=== PATIENT | male | born 1945 | race African-American/Black ===

== ENCOUNTER 2016-08-13 14:03 | Emergency (ER) | payer MEDICARE, MEDICAID ==
[2016-08-13 14:45] VITALS: TEMP 97.7; BMI 21.1
[2016-08-13 15:07] LABS: ALL NEG? NO
[2016-08-13 15:16] LABS: MDMA* NEG (NEGATIVE); METHAMPHETAMINES NEG (NEGATIVE); OXYCODONE NEG (NEGATIVE)
[2016-08-13 15:20] LABS: LEUKOCYTES/URINE NEG (NEGATIVE); NITRITE/URINE NEG (NEGATIVE); URINE OCCULT BLOOD NEG (NEG/TRACE)
--- NOTE | 2016-08-13 15:42 | DIRPT ---
CLINICAL DATA: Cough and congestion for 1 month. EXAM: CHEST 2 VIEW COMPARISON: Chest x-ray 07/03/2016 FINDINGS: The cardiac silhouette, mediastinal and hilar contours are within normal limits and stable. There is mild tortuosity of the thoracic aorta. The pulmonary pam are prominent but this is due to enlarged pulmonary arteries on the recent CT scan. There is a right lower lobe densities suspicious for pneumonia. There is a small stable cavitary lesion in the left lower lobe. Stable advanced emphysematous changes and pulmonary scarring. Biapical pleural thickening, right greater than left. No significant bony findings. IMPRESSION: 1. Right lower lobe infiltrate. 2. Emphysematous changes and pulmonary scarring. 3. Stable cavitary lesion in the left lower lobe. Electronically Signed By: Chris Cancino M.D. On: 08/13/2016 15:39
[2016-08-13] MEDS ORDERED: AZITHROMYCIN 500 MG in D5W 250 ML IV ONE (16:36)
[2016-08-13] MEDS ORDERED: CEFTRIAXONE 1 GM in D5W 100 ML IV ONE (16:36)
[2016-08-13] MEDS ORDERED: Levofloxacin 750 mg/150 ml D5W 750 MG/150 ML RTU IV ONE (16:40)
--- NOTE | 2016-08-13 16:42 | EDPRACDOC ---
- General Information Mode Of Arrival: Ambulance - History of Present Illness Onset: SEVERAL DAYS HPI: PT PRESENTS WITH GENERALIZED WEAKNESS, COUGH AND NOT FEELING WELL FOR THE PAST 4 DAYS. PT IS KNOWN TO HAVE COPD, AND ETOH ABUSE. PT APPEARS WEAK AND ILL UPON EXAM Shortness of Breath: Mild Relevant History: Reports: COPD Cough: Reports: Productive, Brown Ear Symptoms: Reports: None SOB Worsens with: Reports: Exertion, Movement, Coughing, Lying Flat, Position SOB Improves with: Reports: Sitting up, Rest, Position Recently treated infections:: Denies: Otitis media, Pneumonia, URI <Asmita Sterling - Last Filed: 08/13/16 16:39> <Forrest Munoz - Last Filed: 08/13/16 19:14> - General Information Chief Complaint: Generalized Weakness Stated Complaint: ETOH WITHDRAWAL WEAKNESS Time Seen by Provider: 08/13/16 16:37 Home Medications: Home Medications Esomeprazole Mag Trihydrate [Nexium] 40 mg PO DAILY 07/17/12 Alprazolam [Xanax] 1 mg PO BID 04/12/13 Aspirin [Aspirin, Chewable] 81 mg PO DAILY 04/12/13 Fluticasone Propionate [Flonase] 1 spray LANDEN DAILY 04/12/13 Lisinopril [Prinivil] 5 mg PO DAILY 04/12/13 Metoprolol Tartrate [Lopressor] 25 mg PO BID 04/12/13 Tamsulosin HCl [Flomax] 0.4 mg PO DAILY 04/12/13 Ipratropium/Albuterol Sulfate [Combivent Respimat] 1 puff INH BID 03/31/14 Tiotropium [Spiriva Handihaler] 1 puff INH DAILY 03/31/14 Cholecalciferol (Vitamin D3) [Vitamin D3] 2,000 unit PO DAILY 03/03/16 Ferrous Sulfate [Iron] 325 mg PO DAILY 03/03/16 Megestrol Acetate 625 mg PO DAILY 03/03/16 Mirtazapine [Remeron] 15 mg PO HS 03/03/16 Amlodipine Besylate [Norvasc] 5 mg PO DAILY 06/03/16 Azithromycin 250 mg PO DAILY #4 tablet 08/13/16 Cefdinir 300 mg PO BID #14 capsule 08/13/16 Allergies/Adverse Reactions: Allergies Allergy/AdvReac Type Severity Reaction Status Date / Time No Known Allergies Allergy Verified 08/13/16 14:41 - Treatment Prior to ED Arrival Reported Medications/Treatment [facility] Treatment BLS IV No <Asmita Sterling - Last Filed: 08/13/16 16:39> - Treatment Prior to ED Arrival Reported Medications/Treatment [facility] Treatment BLS IV No <Forrest Munoz - Last Filed: 08/13/16 19:14> ED Past Medical History - History Reviewed Yes Nurses notes reviewed and agree except as marked - Patient Medical History Neurological History: Reports: Seizures. Denies: Cerebrovascular Accident, Dementia Cardiac History: Reports: Coronary Artery Disease, Hypertension, Hypercholesterolemia. Denies: Congestive Heart Failure, Heart Attack Respiratory History: Reports: Asthma, COPD, Cough, Emphysema GI/ History: Reports: Gastroesophageal Reflux Musculoskeletal History: Reports: Osteoarthritis Psychological History: Reports: Anxiety, Substance Use Disorder (patient smokes) . Denies: Depression Systemic History: Denies: Cancer, Diabetes - Family Medical History Reports: Hypertension, Diabetes, Stroke. Denies: Cancer, Cardiac Disorders - Social Medical History Smoking Status: Heavy tobacco smoker (5 or more cigarettes/day or daily pipe/ cigar) Social History: Reports: Substance Use Disorder (patient smokes) <Asmita Sterling - Last Filed: 08/13/16 16:39> EDM Review of Systems - Review of Systems ROS Negative Except as Marked: Yes All systems reviewed and were negative except as marked <Asmita Sterling - Last Filed: 08/13/16 16:39> - Physical Exam Constitutional: Alert. negative: Well nourished, Well appearing Oriented to: Time, Person, Place Last recorded Vital Signs: Last Vital Signs Temp 97.7 F 08/13/16 14:41 Pulse 107 08/13/16 14:41 Resp 20 08/13/16 14:41 BP 144/76 08/13/16 14:41 Pulse Ox 91 08/13/16 14:41 Oxygen Pulse Oxygen Saturation 91 O2 Device Room Air Oxygen Flow Rate Fraction of Inspired Oxygen ( FIO2) - HEENT Head: Normal ( normocephalic) Eye Exam: Normal (PERRL, EOMI, Sclera white) Oropharynx: Membranes Dry Tympanic Membrane: Normal Nose: No Symptoms Reported (septum midline) Neck: Normal (FROM, trachea at midline) - Respiratory/Cardiovascular Respiratory: Accessory Muscle Use, Rales, Rhonchi, Tachypnea, Wheezes Cardiovascular: Tachycardia - GI Auscultation: Normal (NABS) Palpation: Normal (Soft,No rebound or guarding, non distended) Tenderness: Non tender Darnell's Sign: Negative Rectal Exam: Deferred - Musculoskeletal Back: Normal (Non-Tender) Extremities: Normal (Normal tone, Pulses 2+ No cyanosis or edema, FROM) - Integumentary Skin: Normal, Warm, Dry Lymphatics: Normal (no adenopathy) - Neurologic Memory Impaired: Normal Motor Function: Normal (Normal tone, Pulses 2+ No cyanosis or edema, FROM) Cranial Nerve: Normal (CN II-X11 intact sensation, strength 5/5) Cerebellar: Normal Mood Description: Normal Perception: Normal <Asmita Sterling - Last Filed: 08/13/16 16:39> - Physical Exam Last recorded Vital Signs: Last Vital Signs Temp 97.7 F 08/13/16 14:41 Pulse 82 08/13/16 16:55 Resp 20 08/13/16 16:55 BP 156/73 08/13/16 16:55 Pulse Ox 93 08/13/16 16:55 Oxygen Pulse Oxygen Saturation 93 O2 Device Room Air Oxygen Flow Rate Fraction of Inspired Oxygen ( FIO2) <Forrest Munoz - Last Filed: 08/13/16 19:14> ED SOB MDM - Differential Diagnosis Differential Diagnosis: Pnuemonia, Respiratory Failure, Respiratory Insufficiency - Results Result Diagrams: 08/13/16 14:56 08/13/16 14:56 Results: Urine Color Yellow 08/13/16 15:02 Urine Clarity Clear 08/13/16 15:02 Urine pH 6.0 (5.0-8.0) 08/13/16 15:02 Ur Specific [place] 1.015 (1.003-1.035) 08/13/16 15:02 Urine Protein 1+ (NEG/TRACE) H 08/13/16 15:02 Urine Glucose (UA) Neg (NEGATIVE) 08/13/16 15:02 Urine Ketones 1+ (NEGATIVE) H 08/13/16 15:02 Urine Occult Blood Neg (NEG/TRACE) 08/13/16 15:02 Urine Nitrite Neg (NEGATIVE) 08/13/16 15:02 Urine Bilirubin Neg (NEGATIVE) 08/13/16 15:02 Urine Urobilinogen <2.0 MG/DL (0-1) 08/13/16 15:02 Ur Leukocyte Esterase Neg (NEGATIVE) 08/13/16 15:02 Urine RBC 2-5 (0-2) H 08/13/16 15:02 Urine WBC 2-5 (0-2) H 08/13/16 15:02 Urine Bacteria Few (NEG/FEW) 08/13/16 15:02 Hyaline Casts 10-20 (0-2) H 08/13/16 15:02 Urine Mucus Mod (NEG/OCC) H 08/13/16 15:02 Urine Opiates Screen Neg (NEGATIVE) 08/13/16 15:02 Ur Oxycodone Screen Neg (NEGATIVE) 08/13/16 15:02 Urine Methadone Screen Neg (NEGATIVE) 08/13/16 15:02 Ur Barbiturates Screen Neg (NEGATIVE) 08/13/16 15:02 Ur Tricyclics Screen Neg (NEGATIVE) 08/13/16 15:02 Ur Phencyclidine Scrn Neg (NEGATIVE) 08/13/16 15:02 Ur Amphetamines Screen Neg (NEGATIVE) 08/13/16 15:02 U Methamphetamines Scrn Neg (NEGATIVE) 08/13/16 15:02 Urine MDMA Screen Neg (NEGATIVE) 08/13/16 15:02 U Benzodiazepines Scrn *positive* (NEGATIVE) H 08/13/16 15:02 Urine Cocaine Screen Neg (NEGATIVE) 08/13/16 15:02 Ur THC Screen *positive* (NEGATIVE) H 08/13/16 15:02 Lab Results 08/13/16 08/13/16 15:02 15:02 Urine Color Yellow Urine Clarity Clear Urine pH 6.0 Ur Specific [place] 1.015 Urine Protein 1+ H Urine Glucose (UA) Neg Urine Ketones 1+ H Urine Occult Blood Neg Urine Nitrite Neg Urine Bilirubin Neg Urine Urobilinogen <2.0 Ur Leukocyte Esterase Neg Urine RBC 2-5 H Urine WBC 2-5 H Urine Bacteria Few Hyaline Casts 10-20 H Urine Mucus Mod H Urine Opiates Screen Neg Ur Oxycodone Screen Neg Urine Methadone Screen Neg Ur Barbiturates Screen Neg Ur Tricyclics Screen Neg Ur Phencyclidine Scrn Neg Ur Amphetamines Screen Neg U Methamphetamines Scrn Neg Urine MDMA Screen Neg U Benzodiazepines Scrn *positive* H Urine Cocaine Screen Neg Ur THC Screen *positive* H - EKG EKG #1 EKG Time: 15:00 -: Yes EKG interpreted by me Rate: bpm: 88 [place]: Normal Rhythm: NSR (WITH SINUS ARRHYTHMIA) Block: None Hypertrophy: LVH ST: Normal <Asmita Sterling W - Last Filed: 08/13/16 16:39> - Results Result Diagrams: 08/13/16 17:00 08/13/16 17:00 Results: WBC 6.9 xk/uL (3.8-10.8) 08/13/16 17:00 RBC 4.48 xM/uL (4.70-6.10) L 08/13/16 17:00 Hgb 12.8 g/dL (14.0-18.0) L 08/13/16 17:00 Hct 38.7 % (42-52) L 08/13/16 17:00 MCV 86 fL (80-94) 08/13/16 17:00 MCH 28.5 pg (27-32) 08/13/16 17:00 MCHC 33.0 g/dl (33-36) 08/13/16 17:00 RDW 15.5 % (11.5-14.5) H 08/13/16 17:00 Plt Count 387 xk/uL (130-400) 08/13/16 17:00 MPV 6.9 fL (7.4-10.4) L 08/13/16 17:00 Neut % (Auto) 61.2 % (45-76) 08/13/16 17:00 Lymph % (Auto) 24.7 % (17-44) 08/13/16 17:00 [place] % (Auto) 12.1 % (3-10) H 08/13/16 17:00 Eos % (Auto) 1.4 % (0-5) 08/13/16 17:00 Baso % (Auto) 0.6 % (0-2) 08/13/16 17:00 Absolute Neuts (auto) 4.21 xk/uL (1.7-8.2) 08/13/16 17:00 Absolute Lymphs (auto) 1.66 xk/uL (0.65-4.75) 08/13/16 17:00 PT 11.0 SEC (9.2-11.2) 08/13/16 17:00 INR 1.1 08/13/16 17:00 APTT 25.1 SEC (22-35) 08/13/16 17:00 Puncture Site Left radial 08/13/16 17:10 pH 7.450 pH UNITS (7.35-7.45) 08/13/16 17:10 pCO2 38.0 mmHg (35-45) 08/13/16 17:10 pO2 72.0 mmHg (80-100) L 08/13/16 17:10 HCO3 26.4 MMOL/L (22-26) H 08/13/16 17:10 Total CO2 27.6 MMOL/L (23-27) H 08/13/16 17:10 Base Excess 2.4 (+/- 2) H 08/13/16 17:10 FiO2 % 21% 08/13/16 17:10 Specimen Drawn By [place] 08/13/16 17:10 Urine Color Yellow 08/13/16 15:02 Urine Clarity Clear 08/13/16 15:02 Urine pH 6.0 (5.0-8.0) 08/13/16 15:02 Ur Specific [place] 1.015 (1.003-1.035) 08/13/16 15:02 Urine Protein 1+ (NEG/TRACE) H 08/13/16 15:02 Urine Glucose (UA) Neg (NEGATIVE) 08/13/16 15:02 Urine Ketones 1+ (NEGATIVE) H 08/13/16 15:02 Urine Occult Blood Neg (NEG/TRACE) 08/13/16 15:02 Urine Nitrite Neg (NEGATIVE) 08/13/16 15:02 Urine Bilirubin Neg (NEGATIVE) 08/13/16 15:02 Urine Urobilinogen <2.0 MG/DL (0-1) 08/13/16 15:02 Ur Leukocyte Esterase Neg (NEGATIVE) 08/13/16 15:02 Urine RBC 2-5 (0-2) H 08/13/16 15:02 Urine WBC 2-5 (0-2) H 08/13/16 15:02 Urine Bacteria Few (NEG/FEW) 08/13/16 15:02 Hyaline Casts 10-20 (0-2) H 08/13/16 15:02 Urine Mucus Mod (NEG/OCC) H 08/13/16 15:02 Urine Opiates Screen Neg (NEGATIVE) 08/13/16 15:02 Ur Oxycodone Screen Neg (NEGATIVE) 08/13/16 15:02 Urine Methadone Screen Neg (NEGATIVE) 08/13/16 15:02 Ur Barbiturates Screen Neg (NEGATIVE) 08/13/16 15:02 Ur Tricyclics Screen Neg (NEGATIVE) 08/13/16 15:02 Ur Phencyclidine Scrn Neg (NEGATIVE) 08/13/16 15:02 Ur Amphetamines Screen Neg (NEGATIVE) 08/13/16 15:02 U Methamphetamines Scrn Neg (NEGATIVE) 08/13/16 15:02 Urine MDMA Screen Neg (NEGATIVE) 08/13/16 15:02 U Benzodiazepines Scrn *positive* (NEGATIVE) H 08/13/16 15:02 Urine Cocaine Screen Neg (NEGATIVE) 08/13/16 15:02 Ur THC Screen *positive* (NEGATIVE) H 08/13/16 15:02 Lab Results 08/13/16 08/13/16 08/13/16 17:10 17:00 17:00 WBC 6.9 RBC 4.48 L Hgb 12.8 L Hct 38.7 L MCV 86 MCH 28.5 MCHC 33.0 RDW 15.5 H Plt Count 387 MPV 6.9 L Neut % (Auto) 61.2 Lymph % (Auto) 24.7 [place] % (Auto) 12.1 H Eos % (Auto) 1.4 Baso % (Auto) 0.6 Absolute Neuts (auto) 4.21 Absolute Lymphs (auto) 1.66 PT 11.0 INR 1.1 APTT 25.1 Puncture Site Left radial pH 7.450 pCO2 38.0 pO2 72.0 L HCO3 26.4 H Total CO2 27.6 H Base Excess 2.4 H FiO2 % 21% Specimen Drawn By [facility]ana Urine Color Urine Clarity Urine pH Ur Specific [place] Urine Protein Urine Glucose (UA) Urine Ketones Urine Occult Blood Urine Nitrite Urine Bilirubin Urine Urobilinogen Ur Leukocyte Esterase Urine RBC Urine WBC Urine Bacteria Hyaline Casts Urine Mucus Urine Opiates Screen Ur Oxycodone Screen Urine Methadone Screen Ur Barbiturates Screen Ur Tricyclics Screen Ur Phencyclidine Scrn Ur Amphetamines Screen U Methamphetamines Scrn Urine MDMA Screen U Benzodiazepines Scrn Urine Cocaine Screen Ur THC Screen 01/11/17 01/11/17 15:02 15:02 WBC RBC Hgb Hct MCV MCH MCHC RDW Plt Count MPV Neut % (Auto) Lymph % (Auto) [place] % (Auto) Eos % (Auto) Baso % (Auto) Absolute Neuts (auto) Absolute Lymphs (auto) PT INR APTT Puncture Site pH pCO2 pO2 HCO3 Total CO2 Base Excess FiO2 % Specimen Drawn By Urine Color Yellow Urine Clarity Clear Urine pH 6.0 Ur Specific [place] 1.015 Urine Protein 1+ H Urine Glucose (UA) Neg Urine Ketones 1+ H Urine Occult Blood Neg Urine Nitrite Neg Urine Bilirubin Neg Urine Urobilinogen <2.0 Ur Leukocyte Esterase Neg Urine RBC 2-5 H Urine WBC 2-5 H Urine Bacteria Few Hyaline Casts 10-20 H Urine Mucus Mod H Urine Opiates Screen Neg Ur Oxycodone Screen Neg Urine Methadone Screen Neg Ur Barbiturates Screen Neg Ur Tricyclics Screen Neg Ur Phencyclidine Scrn Neg Ur Amphetamines Screen Neg U Methamphetamines Scrn Neg Urine MDMA Screen Neg U Benzodiazepines Scrn *positive* H Urine Cocaine Screen Neg Ur THC Screen *positive* H <Forrest Munoz - Last Filed: 08/13/16 19:14> - Departure Education/Counseling Given To: Patient Education/Counseling Given Regarding: Diagnosis, Treatment, Prognosis, Follow Up <Asmita Sterling - Last Filed: 08/13/16 16:39> Decision Time to Discharge: 19:14 - Departure Yes I personally saw and evaluated the patient. Disposition: Home <Forrest Munoz - Last Filed: 08/13/16 19:14> - Departure Condition: Stable Final Diagnosis: Pneumonia Qualifiers: Pneumonia type: due to unspecified organism Laterality: unspecified laterality Lung location: unspecified part of lung Qualified Code(s): J18.9 - Pneumonia, unspecified organism Instructions: Bacterial Pneumonia (ED) Referrals: Vee Olvera MD [Primary Care Provider] - One Week Prescriptions: Azithromycin 250 mg PO DAILY #4 tablet Cefdinir 300 mg PO BID #14 capsule
[2016-08-13 17:24] LABS: ALLEN'S TEST PASS; BEb 2.4 (+/- 2); TCO2 27.6 MMOL/L (23-27)
[2016-08-13 17:25] LABS: AUTOMATED BASOPHIL 0.6 % (0-2); AUTOMATED EOSINOPHIL 1.4 % (0-5); AUTOMATED LYMPH 24.7 % (17-44); AUTOMATED MONOCYTE 12.1 % (3-10); AUTOMATED NEUTROPHIL 61.2 % (45-76); MPV 6.9 fL (7.4-10.4)
[2016-08-13 17:26] LABS: ABG Draw Site Left Radial
[2016-08-13 17:35] LABS: PARTIAL THROMB. TIME 25.1 SEC (22-35); PT-INR 1.1
[2016-08-13 18:52] LABS: BLOOD UREA NITROGEN 14 MG/DL (9-20); CALCIUM 9.7 MG/DL (8.4-10.2); CALCULATED OSMOLALITY 270 MOs/Kg (270-290); CHLORIDE 103 mEq/L (98-107); GLUCOSE 122 MG/DL (70-99); SODIUM LEVEL 139 mEq/L (137-146); TOTAL PROTEIN 7.3 G/DL (6.3-8.2)
[2016-08-13 19:26] LABS: ETOH-MGDL < 10 mg/dL
[2016-08-13 21:01] VITALS: BP 133/84; PULSE 82
== END 2016-08-13 21:02 | disposition home or self-care (01) ==
LOC: ED 14:03
DX: J18.9 Pneumonia, unspecified organism (principal)
CPT/HCPCS: 36415; 36600; 71020; 80053; 80307; 81001; 82803; 83690; 83880; 84484; 85025; 85610; 85730; 86592; 87040; 93005; 96365; 96366; 99282; J0696; J1956; J7060

== ENCOUNTER 2016-08-22 09:15 | Emergency (ER) | payer MEDICARE, MEDICAID ==
[2016-08-22 09:15] VITALS: BMI 21.1
--- NOTE | 2016-08-22 09:20 | EDPRACDOC ---
- General Information Stated Complaint: RESP. PROBLEMS Time Seen by Provider: 08/22/16 09:18 Information Source: Patient, [employer] Home Medications: Home Medications Esomeprazole Mag Trihydrate [Nexium] 40 mg PO DAILY 07/17/12 Alprazolam [Xanax] 1 mg PO BID 04/12/13 Aspirin [Aspirin, Chewable] 81 mg PO DAILY 04/12/13 Fluticasone Propionate [Flonase] 1 spray LANDEN DAILY 04/12/13 Lisinopril [Prinivil] 5 mg PO DAILY 04/12/13 Metoprolol Tartrate [Lopressor] 25 mg PO BID 04/12/13 Tamsulosin HCl [Flomax] 0.4 mg PO DAILY 04/12/13 Ipratropium/Albuterol Sulfate [Combivent Respimat] 1 puff INH BID 03/31/14 Tiotropium [Spiriva Handihaler] 1 puff INH DAILY 03/31/14 Cholecalciferol (Vitamin D3) [Vitamin D3] 2,000 unit PO DAILY 03/03/16 Ferrous Sulfate [Iron] 325 mg PO DAILY 03/03/16 Megestrol Acetate 5 ml PO TIDAC 03/03/16 Mirtazapine [Remeron] 15 mg PO HS 03/03/16 Amlodipine Besylate [Norvasc] 5 mg PO DAILY 06/03/16 Cefdinir 300 mg PO BID #14 capsule 08/13/16 Albuterol Sulfate [Proair Hfa] 2 puff INH Q4-6H PRN 08/22/16 Albuterol/Ipratropium Neb [Duoneb] 3 ml NEB Q6H PRN 08/22/16 Allergies/Adverse Reactions: Allergies Allergy/AdvReac Type Severity Reaction Status Date / Time No Known Allergies Allergy Verified 08/13/16 14:41 - History of Present Illness HPI: PT WOKE UP SOB THIS AM. ALSO FELL OUT OF BED THIS AM. RECENTLY IN ED FOR SOB. PT REPORTS HE WEARS OXYGEN AT HOME. Shortness of Breath: Moderate ED Past Medical History - History Reviewed Yes Nurses notes reviewed and agree except as marked - Patient Medical History Neurological History: Reports: Seizures. Denies: Cerebrovascular Accident, Dementia Cardiac History: Reports: Coronary Artery Disease, Hypertension, Hypercholesterolemia. Denies: Congestive Heart Failure, Heart Attack Respiratory History: Reports: Asthma, COPD, Cough, Emphysema GI/ History: Reports: Gastroesophageal Reflux Musculoskeletal History: Reports: Osteoarthritis Psychological History: Reports: Anxiety, Substance Use Disorder (patient smokes) . Denies: Depression Systemic History: Denies: Cancer, Diabetes - Family Medical History Reports: Hypertension, Diabetes, Stroke. Denies: Cancer, Cardiac Disorders - Social Medical History Smoking Status: Heavy tobacco smoker (5 or more cigarettes/day or daily pipe/ cigar) Social History: Reports: Substance Use Disorder (patient smokes) EDM Review of Systems - Review of Systems ROS Negative Except as Marked: Yes All systems reviewed and were negative except as marked Constitutional: Weakness. negative: Fever Eyes: No Symptoms Reported Respiratory: Cough, Shortness of Breath Cardiovascular: No Symptoms Reported Gastrointestinal: Diarrhea Genitourinary: No Symptoms Reported Neurological: No Symptoms Reported Musculoskeletal: No Symptoms Reported Integumentary: No Symptoms Reported - Physical Exam Last recorded Vital Signs: Oxygen Pulse Oxygen Saturation O2 Device Oxygen Flow Rate Fraction of Inspired Oxygen ( FIO2) ED SOB MDM - Results Result Diagrams: 08/22/16 10:25 08/22/16 10:25 - EKG EKG #1 EKG Time: 09:22 -: Yes EKG interpreted by me Rate: bpm: 86 [place]: Normal Rhythm: NSR Block: None Hypertrophy: None ST: Normal Comments: NORMAL EKG Decision Time to Discharge: 12:52 - Departure Yes I personally saw and evaluated the patient. Disposition: Home Condition: Stable Final Diagnosis: COPD (chronic obstructive pulmonary disease) Qualifiers: COPD type: unspecified COPD Qualified Code(s): J44.9 - Chronic obstructive pulmonary disease, unspecified Instructions: COPD (Chronic Obstructive Pulmonary Disease) (ED) Education/Counseling Given To: Patient Education/Counseling Given Regarding: Diagnosis Referrals: None,No Provider [NonStaff] - One Week
--- NOTE | 2016-08-22 10:05 | DIRPT ---
CLINICAL DATA: Shortness of breath, cough. EXAM: PORTABLE CHEST 1 VIEW COMPARISON: August 13, 2016. FINDINGS: Stable cardiac silhouette. Right lower lobe opacity is improved suggesting improving pneumonia. No pneumothorax is noted. No significant pleural effusion is noted. Stable cavitary lesion is seen in left lung base. Bony thorax is unremarkable. IMPRESSION: Decreased right lower lobe opacity most consistent with improving pneumonia. Significant residual density remains, and continued radiographic follow-up is recommended. Stable cavitary lesion is seen in left lung base. Electronically Signed By: Mike Barcenas Jr, M.D. On: 08/22/2016 10:02
[2016-08-22 10:13] LABS: ALLEN'S TEST PASS; BEb 2.7 (+/- 2); TCO2 27.3 MMOL/L (23-27)
[2016-08-22 10:14] LABS: ABG Draw Site LRA
[2016-08-22 10:39] LABS: AUTOMATED BASOPHIL 0.6 % (0-2); AUTOMATED EOSINOPHIL 0.8 % (0-5); AUTOMATED LYMPH 16.8 % (17-44); AUTOMATED NEUTROPHIL 64.8 % (45-76); MPV 6.7 fL (7.4-10.4)
[2016-08-22 10:56] LABS: BLOOD UREA NITROGEN 17 MG/DL (9-20); CALC CORRECTED 9.2 MG/DL (8.4-10.2); CALCIUM 9.1 MG/DL (8.4-10.2); CALCULATED OSMOLALITY 271 MOs/Kg (270-290); CHLORIDE 104 mEq/L (98-107); GLUCOSE 100 MG/DL (70-99); SODIUM LEVEL 140 mEq/L (137-146); TOTAL PROTEIN 6.7 G/DL (6.3-8.2)
[2016-08-22] MEDS ORDERED: ALBUTEROL 0.083% 3 ML NEB NEB ONE (11:39)
[2016-08-22 12:17] LABS: LEUKOCYTES/URINE NEG (NEGATIVE); NITRITE/URINE NEG (NEGATIVE); URINE OCCULT BLOOD NEG (NEG/TRACE)
[2016-08-22 12:27] LABS: RBC/URINE 0-2 (0-2)
[2016-08-22 14:10] VITALS: BP 124/73; PULSE 81; TEMP 98.6
== END 2016-08-22 13:58 | disposition home or self-care (01) ==
LOC: ED 09:15
DX: J44.9 Chronic obstructive pulmonary disease, unspecified (principal)
CPT/HCPCS: 36415; 36600; 71010; 80053; 81001; 82803; 83605; 83690; 83880; 84484; 85025; 87040; 87086; 93005; 94640; 99284; A9270; J3490